=== PATIENT | male | born 1950 | race African-American/Black ===

== ENCOUNTER 2016-07-08 08:25 | Outpatient (CLI) | payer MEDICARE, OTHER ==
[2016-07-08 09:16] LABS: ALT (SGPT) 43 U/L (0-55); AST (SGOT) 27 U/L (5-34); Alkaline Phosphatase 63 U/L (40-150); Anion Gap 13 mmol/L (10-20); BUN (Urea Nitrogen) 13 mg/dL (8.4-25.7); Bilirubin, Total 0.3 mg/dL (0.2-1.2); Calc. Creatinine Clearance 0 mL/min (70-130); Calcium 9.5 mg/dL (7.8-10.44); Carbon Dioxide 24 mmol/L (23-31); Chloride 108 mmol/L (98-107); Estimated GFR-MDRD Greater than 90; LDL Cholesterol, Calculated 78 mg/dL; Protein, Total 7.4 g/dL (5.8-8.1)
== END 2016-07-08 08:26 | disposition home or self-care (01) ==
LOC: BURLAB 08:25
PROVIDERS: ATTEND Internal Medicine Cardiovascular Disease
DX: E78.00 Pure hypercholesterolemia, unspecified (principal)
CPT/HCPCS: 36415; 80053; 80061

== ENCOUNTER 2017-03-05 06:59 | Emergency (ER) | payer MEDICARE, OTHER ==
[2017-03-05 07:58] LABS: #Basophils 0.2 thou/uL (0.0-0.2); #Eosinphils 0.1 thou/uL (0.0-0.7); #Lymphocytes 1.2 thou/uL (1.20-3.40); #Monocytes 0.7 thou/uL (0.11-0.59); #Neutrophils 7.2 thou/uL (1.40-6.50); %Basophils 1.8 % (0.0-1.0); %Lymphocytes 12.4 % (21.0-51.0); %Monocytes 7.5 % (0.0-10.0); %Neutrophils 77.3 % (42.0-75.0); Hemoglobin 14.9 g/dL (14.0-18.0); Mean Corpuscular Hemoglobin 31.3 pg (27.0-31.0); Mean Platelet Volume 8.3 fL (7.4-10.4); Platelet Count 216 thou/uL (130-400); RBC Distribution Width 11.7 % (11.5-14.5); Red Blood Cell (RBC) Count 4.76 mill/uL (4.70-6.10); White Blood Cell (WBC) Count 9.3 thou/uL (4.8-10.8)
[2017-03-05 08:00] LABS: ALT (SGPT) 54 U/L (8-55); AST (SGOT) 32 U/L (5-34); Albumin 4.4 g/dL (3.4-4.8); Alkaline Phosphatase 72 U/L (40-150); Anion Gap 14 mmol/L (10-20); BUN (Urea Nitrogen) 10 mg/dL (8.4-25.7); Bilirubin, Total 0.3 mg/dL (0.2-1.2); Calc. Creatinine Clearance 0 mL/min (70-130); Calcium 9.5 mg/dL (7.8-10.44); Carbon Dioxide 22 mmol/L (23-31); Chloride 108 mmol/L (98-107); Estimated GFR-MDRD Greater than 90; Globulin 3.4 g/dL (2.4-3.5); Glucose 146 mg/dL (80-115); Potassium 4.2 mmol/L (3.5-5.1); Protein, Total 7.8 g/dL (5.8-8.1); Sodium 140 mmol/L (136-145)
[2017-03-05 08:06] LABS: CKMB 4.7 ng/mL (0-6.6)
--- NOTE | 2017-03-05 16:19 | RAD ---
PORTABLE CHEST: DATE: 03/05/17. FINDINGS: An AP portable film at 0801 is compared with a 03/21/09 study. The heart is normal in size and the lungs are clear. No infiltrate, effusion, or congestion was see n. The mediastinum appears normal. The trachea is midline. IMPRESSION: No acute thoracic findings. POS: HOME
== END 2017-03-05 08:35 | disposition home or self-care (01) ==
LOC: BURERS 06:59
DX: J06.9 Acute upper respiratory infection, unspecified (principal); E78.5 Hyperlipidemia, unspecified; I10 Essential (primary) hypertension
CPT/HCPCS: 71010; 80053; 82553; 83880; 84484; 85025; 93005

== ENCOUNTER 2018-03-10 17:22 | Outpatient (CLI) | payer MEDICARE, OTHER ==
--- NOTE | 2018-03-10 18:44 | RAD ---
RIGHT SHOULDER THREE VIEWS: 03/10/18 No fracture or joint space abnormality was seen. The AC joint is normal in width. There is no disloca tion. IMPRESSION: No acute findings. POS: HOME
== END 2018-03-10 17:23 | disposition home or self-care (01) ==
LOC: BURRAD 17:22
PROVIDERS: ATTEND Family Medicine
DX: M25.411 Effusion, right shoulder (principal); R29.898 Other symptoms and signs involving the musculoskeletal system; M25.511 Pain in right shoulder